=== PATIENT | male | born 1995 | race Caucasian/White ===

== ENCOUNTER 2018-06-06 19:56 | Emergency (ER) | payer OTHER ==
[~2018-06-06] VITALS: Ht 188 cm; Wt 79.5 kg
[2018-06-06] MEDS ORDERED: ACET500T15 PO (20:01)
[2018-06-06 20:50] LABS: INFLUENZA A AMPLIFICATION NEGATIVE (NEGATIVE); INFLUENZA B AMPLIFICATION NEGATIVE (NEGATIVE)
[2018-06-06] MEDS ORDERED: VALA1TAB2 PO (21:23)
[2018-06-06] MEDS ORDERED: BICILLIN L-A 2,400,000 UNIT/4 ML SYRINGE (J0561-24)PENICILLIN G BENZATINE IM ONE (21:30)
[2018-06-06] MEDS ORDERED: valACYclovir HCL 500 MG TAB PO ONE (21:30)
[2018-06-06 22:05] VITALS: BP 128/72
[2018-06-06 22:09] LABS: CHLAMYDIA DNA AMPLIFICATION NEGATIVE (NEGATIVE); GC DNA AMPLIFICATION NEGATIVE (NEGATIVE)
[2018-06-07 09:52] LABS: HEPATITIS B SURFACE ANTIBODY POSITIVE (POSITIVE); HEPATITIS B SURFACE ANTIGEN NEGATIVE (NEGATIVE); HEPATITIS C VIRUS ABY INDEX < 0.0 INDEX (<0.8); HIV 1&2 SCREEN CENTAUR NEGATIVE (NEGATIVE)
[2018-06-08] MEDS ORDERED: AMOX500C PO (17:29)
== END 2018-06-06 22:26 | disposition home or self-care (01) ==
LOC: M ED 19:56
DX: A60.01 Herpesviral infection of penis (principal); B00.89 Other herpesviral infection; Z20.2 Contact with and (suspected) exposure to infections with a predominantly sexual mode of transmission
CPT/HCPCS: 81001; 86706; 86780; 86803; 87340; 87389; 87491; 87502; 87591; 87880; 96372; 99284; J0561

== ENCOUNTER 2019-05-03 14:20 | Emergency (ER) | payer OTHER ==
[~2019-05-03] VITALS: Ht 188 cm; Wt 90.6 kg
[~2019-05-03 14:20] MED LIST: ACET500T15 PO; AMOX500C PO; VALA1TAB64 PO
--- NOTE | 2019-05-03 15:01 | REP ---
RIGHT SECOND-FIFTH DIGITS: Four views of right 2nd-5th digits performed. There is apparent soft tissue disruption of the 5th digit distally. No fracture or dislocation is seen and I see no radiopaque foreign body in the soft tissues. Electronically Signed by Joao Gale MD 05/03/2019 07:22 P
[2019-05-03] MEDS ORDERED: LIDOCAINE 2% MDV 20 ML VIAL SC ONE (17:45)
[2019-05-03 18:34] VITALS: BP 153/77
[2019-05-03] MEDS ORDERED: KEFL500C17 PO (18:34)
[2019-05-03] MEDS ORDERED: CEPHALEXIN 500 MG CAP PO ONE (18:45)
== END 2019-05-03 18:43 | disposition home or self-care (01) ==
LOC: M ED 14:20
DX: S61.411A Laceration without foreign body of right hand, initial encounter (principal); S67.21XA Crushing injury of right hand, initial encounter; W23.1XXA Caught, crushed, jammed, or pinched between stationary objects, initial encounter; Y99.1 Military activity

== ENCOUNTER 2020-04-27 02:58 | Emergency (ER) | payer OTHER ==
[~2020-04-27] VITALS: Ht 188 cm; Wt 90.8 kg
[~2020-04-27 02:58] MED LIST changes: +KEFL500C17 PO; +VALA1TAB5 PO; -VALA1TAB64 PO
[2020-04-27 02:59] VITALS: BP 137/88
--- NOTE | 2020-04-27 03:46 | REPVR ---
PROCEDURE INFORMATION: Exam: XR Right Hand Exam date and time: 04/27/2020 3:17 AM Age: 24 years old Clinical indication: Pain; Hand; Right; Additional info: Injury TECHNIQUE: Imaging protocol: XR Right hand. Views: 3 or more views. COMPARISON: CR Fingers 05/03/2019 2:33 PM FINDINGS: Bones/joints: Normal. No fracture or dislocation. Soft tissues: Normal. IMPRESSION: Negative right hand. Electronically signed by: Marquis Cuello On 04/27/2020 03:47:08 AM
== END 2020-04-27 04:42 | disposition home or self-care (01) ==
LOC: M ED 02:58
DX: S60.221A Contusion of right hand, initial encounter (principal); Y92.9 Unspecified place or not applicable; Y93.9 Activity, unspecified; Y99.1 Military activity; I10 Essential (primary) hypertension

== ENCOUNTER → 2020-06-15 | Outpatient (CLI) | payer OTHER ==
[~2020-06-15] MED LIST changes: +E-Z-GAS II EFFERVESCENT PACKET (SODIUM BICARB./CITRIC ACID/SIMETHICONE) As Ordered ONE; +E-Z-HD 98% w/w 340GM SUSP BTL As Ordered ONE; +E-Z-PAQUE 96% w/w SUSP 176GM BTL As Ordered ONE
--- NOTE | 2020-06-15 17:38 | REP ---
INDICATION: EPIGASTRIC PAIN. COMPARISON: None. TECHNIQUE: This procedure was performed under the direct supervision of Dr. Perez. Images were reviewed with Dr. ePrez. Liquid barium and gas producing granules were given in the erect position as well as liquid barium in the prone oblique positions in order to perform a double contrast esophagram examination. 0.8 minutes of fluoro time was utilized for this procedure. FINDINGS: The oral and pharyngeal stages of deglutition were unremarkable. Esophageal transport is prompt and efficient and there is no evidence of esophagitis, stricture, mucosal ring, or hiatal hernia. There is gastroesophageal reflux demonstrated to the level of the thoracic inlet. Multiple images demonstrate extrinsic mass effect or a submucosal mass on the superior aspect of the fundus. Gastric leiomyoma is within the differential. Consider CT of the abdomen and or endoscopy for further evaluation. IMPRESSION: 1. There is gastroesophageal reflux demonstrated to the level of the thoracic inlet. 2. Multiple images demonstrate extrinsic mass effect or a submucosal mass on the superior aspect of the fundus. Gastric leiomyoma is within the differential. Consider CT of the abdomen and or endoscopy for further evaluation. <Electronically signed by Jose Mueller > 06/15/20 [id number] <Electronically signed by Jomar Perez > 06/15/20 [id number]
== END ==
LOC: M RAD 09:53
PROVIDERS: ATTEND Student in an Organized Health Care Education/Training Program
DX: K21.9 Gastro-esophageal reflux disease without esophagitis (principal); R10.13 Epigastric pain

== ENCOUNTER → 2020-06-25 | Outpatient (CLI) | payer OTHER ==
[~2020-06-25] MED LIST changes: -E-Z-GAS II EFFERVESCENT PACKET (SODIUM BICARB./CITRIC ACID/SIMETHICONE) As Ordered ONE; -E-Z-HD 98% w/w 340GM SUSP BTL As Ordered ONE; -E-Z-PAQUE 96% w/w SUSP 176GM BTL As Ordered ONE; +GASTROGRAFIN SOLUTION 30ML (Q9963) As Ordered ONE; +ISOVUE-370 76% 100ML VIAL As Ordered ONE
--- NOTE | 2020-06-25 15:01 | REP ---
INDICATION: ABD MASS. COMPARISON: None. TECHNIQUE: Axial contrast-enhanced images of the abdomen using oral and 100 cc Isovue 370 intravenous contrast material with coronal and sagittal reformations. . This CT examination was performed using the following dose reduction techniques: Automated exposure control, adjustment of mA and/or kv according to the patient's size, and use of iterative reconstruction technique. FINDINGS: Lung bases are clear. Visualized heart and pericardium normal. Liver, spleen, pancreas, gallbladder, bilateral adrenal glands and kidneys are normal. Visualized portions of the enteric system appear normal. No abdominal mass lesion. No ascites. No free air. No adenopathy. Abdominal aorta and vasculature appear normal. Visualized musculoskeletal structures are intact. IMPRESSION: No obvious acute abdominal pathology appreciated. <Electronically signed by Eliot Parisi > 06/25/20 [id number]
== END ==
LOC: M RAD 13:28
PROVIDERS: ATTEND Student in an Organized Health Care Education/Training Program
DX: R19.00 Intra-abdominal and pelvic swelling, mass and lump, unspecified site (principal)
CPT/HCPCS: 74160; Q9963; Q9967

== ENCOUNTER → 2020-08-17 | Outpatient (CLI) | payer OTHER ==
[~2020-08-17] MED LIST changes: +ACET1TAB55 PO; +ADDE1TAB20 PO; -GASTROGRAFIN SOLUTION 30ML (Q9963) As Ordered ONE; +IBUP1TAB6 PO; -ISOVUE-370 76% 100ML VIAL As Ordered ONE
[2020-08-17 13:24] LABS: AMPHETAMINES URINE REFLEX NEGATIVE (NEGATIVE); BARBITURATES URINE REFLEX NEGATIVE (NEGATIVE); BENZODIAZEPINES URINE REFLEX NEGATIVE (NEGATIVE); CANNABINOIDS URINE REFLEX NEGATIVE (NEGATIVE); COCAINE METABOLITE URINE REFLE NEGATIVE (NEGATIVE); METHADONE URINE REFLEX NEGATIVE (NEGATIVE); OPIATES URINE REFLEX NEGATIVE (NEGATIVE); PHENCYCLIDINE URINE REFLEX NEGATIVE (NEGATIVE)
== END ==
LOC: M WUC 08:50
PROVIDERS: ATTEND Nurse Practitioner Family
DX: R41.840 Attention and concentration deficit (principal)
CPT/HCPCS: 36415; 80307; G0463

== ENCOUNTER → 2020-08-24 | Outpatient (CLI) | payer OTHER | LOC: M LABSMTC 09:38 | PROVIDERS: ATTEND Anesthesiology | DX: Z20.828 Contact with and (suspected) exposure to other viral communicable diseases (principal); Z11.59 Encounter for screening for other viral diseases ==

== ENCOUNTER 2020-08-29 08:38 | Day surgery (SDC) | payer OTHER ==
[~2020-08-29] VITALS: Ht 188 cm; Wt 83.8 kg
[~2020-08-29 08:38] MED LIST changes: +NS 1,000 ML IV ONE
[2020-08-29] MEDS ORDERED: propofoL 200 MG/20 ML VIAL As Ordered ONE ×2 (10:28→10:34)
[2020-08-29] MEDS ORDERED: LIDOCAINE 2% MDV 20ML VIAL As Ordered ONE (10:28)
[2020-08-29] MEDS ORDERED: fentaNYL 100 MCG/2 ML INJECTION (J3010) As Ordered ONE (10:29)
--- NOTE | 2020-08-29 10:43 | ROOR ---
Patient Name: Stanislav Navarrete Procedure Date: 08/29/2020 10:31 AM Date of : 1995 Age: 24 Room: [facility] Gender: Male Note Status: Finalized Procedure: Upper GI endoscopy Indications: Abnormal UGI series Providers: Pierce Medely MD Referring MD: Rand MOLINA Requesting Provider: Medicines: Monitored Anesthesia Care Complications: No immediate complications. Procedure: Pre-Anesthesia Assessment: - The heart rate, respiratory rate, oxygen saturations, blood pressure, adequacy of pulmonary ventilation, and response to care were monitored throughout the procedure. The Endoscope was introduced through the mouth, and advanced to the second part of duodenum. The upper GI endoscopy was accomplished without difficulty. The patient tolerated the procedure well. Findings: The Z-line was regular and was found 40 cm from the incisors. No gross lesions were noted in the entire esophagus. No other significant abnormalities were identified in a careful examination of the stomach. The exam was otherwise without abnormality. The exam of the duodenum was otherwise normal. There is no endoscopic evidence of mass in the gastroesophageal junction, in the cardia, in the gastric fundus and in the gastric body. Impression: - Z-line regular, 40 cm from the incisors. - No gross lesions in esophagus. - The examination was otherwise normal. - No specimens collected. - The examination was otherwise normal. Recommendation: - Patient has a contact number available for emergencies. The signs and symptoms of potential delayed complications were discussed with the patient. Return to normal activities tomorrow. Written discharge instructions were provided to the patient. - Resume previous diet. - Discharge patient to home. - Continue present medications. - Return to referring physician. Procedure Code(s): --- Professional --- 21449, Esophagogastroduodenoscopy, flexible, transoral; diagnostic, including collection of specimen(s) by brushing or washing, when performed (separate procedure) Diagnosis Code(s): --- Professional --- R93.3, Abnormal findings on diagnostic imaging of other parts of digestive tract CPT copyright 2019 [employer]. All rights reserved. The codes documented in this report are preliminary and upon label coder review may be revised to meet current compliance requirements. Pierce Medley MD Pierce Medley MD 08/29/2020 10:43:00 AM Electronically signed by Pierce Medley MD Number of Addenda: 0 Note Initiated On: 08/29/2020 10:31 AM Estimated Blood Loss: Estimated blood loss: none.
[2020-08-29 11:04] VITALS: BP 100/60
== END 2020-08-29 11:05 | disposition home or self-care (01) ==
LOC: M OPP 08:38
PROVIDERS: ATTEND Internal Medicine Gastroenterology
DX: R10.13 Epigastric pain (principal); R93.89 Abnormal findings on diagnostic imaging of other specified body structures
CPT/HCPCS: 43235; J3010

== ENCOUNTER → 2023-10-07 | Outpatient (REF) | payer OTHER ==
[~2023-10-07] MED LIST changes: -NS 1,000 ML IV ONE
[2023-10-07 11:52] LABS: BASO # 0.1 10^3/uL (0.0-0.2); BASO % 0.7 % (0.0-1.0); EOS # 0.1 10^3/uL (0.0-0.5); EOS % 1.8 % (0.0-3.0); HEMATOCRIT 44.3 % (42.0-52.0); HEMOGLOBIN 14.4 g/dl (13.5-17.5); LYMPH # 1.4 10^3/uL (1.5-5.0); LYMPH % 20.1 % (24.0-44.0); MEAN CORPUSCULAR HEMOGLOBIN 27.2 pg (27.0-33.0); MEAN CORPUSCULAR HGB CONC 32.5 g/dl (32.0-36.5); MEAN CORPUSCULAR VOLUME 83.7 fl (80.0-96.0); MONO # 0.9 10^3/uL (0.0-0.8); MONO % 12.7 % (2.0-8.0); NEUTROPHILS # 4.6 10^3/uL (1.5-8.5); NEUTROPHILS % 64.4 % (36.0-66.0); PLATELET COUNT, AUTOMATED 207 10^3/uL (150-450); RED BLOOD COUNT 5.29 10^6/uL (4.30-6.10); WHITE BLOOD COUNT 7.2 10^3/uL (4.0-10.0)
== END ==
LOC: M SFHCLERA 08:21
PROVIDERS: ATTEND Family Medicine
DX: J02.9 Acute pharyngitis, unspecified (principal); R07.9 Chest pain, unspecified

== ENCOUNTER 2023-12-29 00:17 | Emergency (ER) | payer OTHER ==
[~2023-12-29] VITALS: Ht 188 cm; Wt 86.2 kg
[2023-12-29 03:49] LABS: Trichomonas vaginalis (AMP) NOT DETECTED (NEGATIVE)
[2023-12-29 04:12] LABS: GC DNA AMPLIFICATION NEGATIVE (NEGATIVE)
[2023-12-29 05:44] VITALS: BP 137/82; TEMP 97.6; O2SAT 100
[2023-12-29] MEDS ORDERED: IBUP1TAB6 PO (06:27)
[2023-12-29] MEDS: KETOROLAC 30 MG/ML 1ML VIAL IM ONE (06:38)
== END 2023-12-29 06:39 | disposition home or self-care (01) ==
LOC: M ED 00:17
DX: N45.3 Epididymo-orchitis (principal); Z79.1 Long term (current) use of non-steroidal anti-inflammatories (NSAID); Z79.899 Other long term (current) drug therapy
CPT/HCPCS: 76870; 81001; 87661; 87810; 87850; 93976; 96372; 99283; J1885

== ENCOUNTER → 2025-01-25 | Outpatient (REF) | payer OTHER ==
[~2025-01-25] MED LIST changes: -IBUP1TAB6 PO; +SFHIBU600 PO
[2025-01-25 19:30] LABS: BASO # 0.1 10^3/uL (0.0-0.2); BASO % 0.9 % (0.0-1.0); EOS # 0.2 10^3/uL (0.0-0.5); EOS % 3.1 % (0.0-3.0); LYMPH # 1.9 10^3/uL (1.5-5.0); LYMPH % 29.0 % (24.0-44.0); MONO # 0.5 10^3/uL (0.0-0.8); MONO % 8.0 % (2.0-8.0); NEUTROPHILS # 3.7 10^3/uL (1.5-8.5); NEUTROPHILS % 58.5 % (36.0-66.0); PLATELET COUNT, AUTOMATED 222 10^3/uL (150-450)
== END ==
LOC: M SFHCLERA 12:50
PROVIDERS: ATTEND Family Medicine
DX: R59.1 Generalized enlarged lymph nodes (principal)